=== PATIENT | female | born 1965 | race Hispanic/Latino ===

== ENCOUNTER 2016-09-06 09:17 | Day surgery (SDC) | payer MEDICARE, OTHER ==
--- NOTE | 2016-09-06 09:24 | Short Stay Summary ---
Short Stay Documentation Date of service: 09/06/16 - History Principal diagnosis: Failing dialysis access Past Medical History: dialysis, ESRD Past Surgical History: Other (multiple fistulas and permcaths) Social history: - Allergies and Medications Current Medications: Allergies hydrocodone Adverse Reaction (Verified 10/28/15 07:50) Itching Home Medications Medication Instructions Recorded Confirmed Last Taken Type Acetaminophen [Acetaminophen TAB] 650 mg PO PRN PRN 06/05/13 11/21/15 10/26/15 History Cinacalcet [Sensipar] 60 mg PO BID 06/05/13 11/25/15 11/24/15 21:00 History Levothyroxine [Synthroid] 125 mcg PO QDAY 06/05/13 11/25/15 11/25/15 05:30 History Warfarin Sodium 2.5 mg PO DAILY 06/05/13 11/25/15 11/24/15 12:00 History Esomeprazole Magnesium [NexIUM] 40 mg PO DAILY 06/08/13 11/25/15 11/25/15 05:30 History Loratadine [Claritin] 10 mg PO DAILY PRN 10/22/15 11/25/15 11/18/15 History Sennosides/Docusate Sodium [Stool 2 each PO DAILY 10/22/15 11/25/15 11/24/15 History Softener Tablet] Sevelamer Carbonate [Renvela] 800 mg PO TIDWM 10/22/15 11/25/15 11/24/15 History Vit B Cmplx 3/FA/Vit C/Biotin 1 each PO DAILY 10/22/15 11/25/15 11/24/15 History [Nephro-Kirit Rx Tablet] Oxycodone HCl/Acetaminophen 1 each PO Q6HR PRN #90 tablet 11/25/15 Unknown Rx [Percocet 7.5/325 mg] - Physical exam General appearance: no acute distress Integumentary: no rash HEENT: Atraumatic, PERRLA Lungs: Normal air movement Breasts: deferred Gastrointestinal: normal Female Genitourinary: deferred Rectal Exam: deferred Extremities: no ischemia, abnormal (thrombosed left jovani fistula) Neurological: Normal gait, Normal speech - Brief post op/procedure progress note Date of procedure: 09/06/16 Pre-op diagnosis: malfunctioning dialysis access Post-op diagnosis: same Procedure: Left jovani trombectomy, venoplasty and coil embolization Anesthesia: local Surgeon: BEHZAD ESCALERA Estimated blood loss: minimal Pathology: none Condition: stable - Disposition Condition at discharge: Good Disposition: DISCHARGED TO HOME OR SELFCARE Short Stay Discharge Plan Activity: advance as tolerated Weight Bearing Status: Weight Bear as Tolerated Diet: renal Wound: keep clean and dry, per your surgeon's advice Follow up with: EPIFANIO HILL MD [Primary Care Provider] - 7 Days Forms: AVG Arteriogram D/CInstruction
[2016-09-06] MEDS ORDERED: ANCEF/STERILE WATER 2 GM/20 ML 2 GM/20 ML SYRINGE IV NR (10:00)
[2016-09-06 10:18] LABS: INR 1.01 (0.87-1.13)
[2016-09-06] MEDS ORDERED: VALIUM PO ONE (10:33)
[2016-09-06 10:45] LABS: Potassium 5.7 mmol/L (3.6-5.0)
[2016-09-06] MEDS ORDERED: VALIUM ONE (10:45)
[2016-09-06] MEDS ORDERED: HEPARIN/NS 5000 UNIT/500ML(CATH LAB) 1,000 ML IR ONE (13:12)
[2016-09-06] MEDS ORDERED: ANCEF/STERILE WATER 2 GM/20 ML 2 GM/20 ML SYRINGE IV ONE (13:13)
[2016-09-06] MEDS ORDERED: XYLOCAINE 2% INFILTRATI ONE (13:13)
[2016-09-06] MEDS ORDERED: NACL 0.9% 250ML 250 ML ONE (13:16)
[2016-09-06] MEDS: SUBLIMAZE ONE ×4 (13:35→14:30)
[2016-09-06] MEDS: VERSED ONE ×3 (13:35→13:52)
[2016-09-06] MEDS ORDERED: VERSED ONE (13:46)
[2016-09-06] MEDS ORDERED: HEPARIN 10,000 UNITS/10 ML ONE (13:49)
[2016-09-06] MEDS ORDERED: BENADRYL ONE (14:27)
[2016-09-06 14:59] VITALS: BP 114/71
--- NOTE | 2016-09-06 16:00 | Operative Report ---
Operative Report Operative Report: EXAM: FISTULOGRAM, THROMBECTOMY, VENOPLASTY, VENOUS EMBOLIZATION CLINICAL INDICATION: PATIENT WITH THROMBOSED LEFT FABIAN FISTULA DATE: 09/03/2016 PROCEDURE: Following an explanation of the risks, benefits and alternatives; written informed consent was obtained. The patient was brought to the angiographic suite and placed in supine position on the examination table. Initial evaluation of the Fabian fistula demonstrated no palpable thrill. Ultrasound evaluation of the fistula demonstrated thrombus within the proximal aspect of the fistula. More distal fistula is patent. The patient's left arm was prepped and draped in the usual sterile fashion. 1% lidocaine was used for anesthesia. Under ultrasound guidance, the fistula was accessed towards the arterial anastomosis using a 7 cm 21-gauge needle. A 0.018 guidewire was advanced centrally under fluoroscopy. The needle was removed and a micro-sheath placed. The 0.018 guidewire was exchanged for a 0.035 guidewire and the micro-sheath exchanged for a [place]ian vascular sheath. A 4 [place] vertebral catheter was advanced over the guidewire and together the guidewire and catheter advanced through the arterial anastomosis. Digital subtraction angiography was performed at this point. This demonstrated a patent radial artery with flow to the hand. 50% stenosis is present at the arterial anastomosis. There is flow within the proximal graft with occlusive thrombus approximately 3 cm distal to the arterial anastomosis. The 0.035 guidewire was reinserted and the vertebral catheter removed. A 5.5 [place] [employer] balloon was placed over the guidewire and used to sweep the thrombus more centrally. Balloon angioplasty of the arterial anastomosis was performed using a 4 mm balloon insufflated a nominal atmospheres for 60 seconds. Additional venography was performed which demonstrated dilation of the proximal fistula, in the proximal fistula a large 2 mm draining vein is stealing flow. A decision was made therefore to embolize this vein. Coil embolization of the collateral vein was performed using a 4 mm X 80 mm [employer] interlock coil. Postembolization imaging demonstrated significant reduction of flow. Flow was directed more towards the venous outflow. The thrombus is still present within the midportion of the graft. Additional access was obtained towards the venous outflow in a similar fashion as above and a 6 [place] sheath placed towards the venous outflow. Trerotola mechanical thrombectomy was then performed. Post atherectomy imaging demonstrated significant reduction in the thrombus burden however, scattered areas of thrombus in the draining veins were present. Additional mechanical thrombectomy was performed with near complete resolution of the thrombus and outflow veins. The predominant outflow veins are paired brachial veins. The cephalic vein has a smooth tapered occlusion with drainage from a collateral vein in the mid portion of the upper arm. Sheath directed towards the arterial anastomosis was removed and hemostasis was achieved using 4-0 Vicryl suture. Given the depth of the fistula at this point , a subcutaneous hematoma began to develop. The balloon was then placed through the venous sheath and placed over the puncture site. Hematoma was reduced and additional a suture at the suture site was performed. The balloon was insufflated to normal atmospheres for 5 minutes to allow the puncture site to heal. Post angioplasty imaging demonstrated no extravasation of contrast. The venous sheath was then removed and 4-0 Vicryl suture utilized to achieve hemostasis. Dermabond was then applied. The patient tolerated the procedure well. A palpable thrill was present at the conclusion of the case. There were no immediate post procedure palpitations. Conscious sedation was performed under the guidance of radiologic nursing. Continuous cardiopulmonary monitoring was utilized. IMPRESSION: 1) Fistulagram of Fabian fistula demonstrating thrombus within the proximal aspect of the fistula and a 50% arterial anastomotic stenosis.. Additional imaging demonstrated a large parasitizing collateral vein. 2) Coil embolization of the collateral vein. 3) Mechanical thrombectomy. 4) Venoplasty of the arterial anastomosis with residual less than 10% stenosis.
--- NOTE | 2016-09-08 08:09 | Vascular Lab Report ---
MISCELLANEOUS VESSEL IDENTIFICATION: The arteriovenous access was identified in the left arm and under real-time ultrasound guidance was cannulated. IMPRESSION: Successful ultrasound guided cannulation of the arteriovenous access site.
== END 2016-09-06 15:10 | disposition home or self-care (01) ==
LOC: OPU 09:17
PROVIDERS: ATTEND Radiology Diagnostic Radiology
DX: T82.868A Thrombosis due to vascular prosthetic devices, implants and grafts, initial encounter (principal); N18.6 End stage renal disease; Z99.2 Dependence on renal dialysis; Y83.2 Surgical operation with anastomosis, bypass or graft as the cause of abnormal reaction of the patient, or of later complication, without mention of misadventure at the time of the procedure
CPT/HCPCS: 36415; 36905; 36909; 76937; 82565; 84132; 84520; 85610; C1725; C1751; C1757; C1769; C1894; J0690; J1644; J2250; J3010; J7050; 37241; J1200; Q9967